=== PATIENT | male | born 1955 | race Two or more races ===

== ENCOUNTER 2017-12-17 13:02 | Inpatient (IN) | payer OTHER ==
[2017-12-17] MEDS ORDERED: guaiFENesin/D-METHORPHAN HB 10 ML UNIT-DOSE CUPS PO PRN (14:36)
[2017-12-17] MEDS ORDERED: MAGNESIUM CITRATE 300 ML BOTTLE PO PRN (14:36)
[2017-12-17] MEDS ORDERED: MAG HYDROX/AL HYDROX/SIMETH 30 ML UNIT-DOSE CUP PO PRN (14:36)
[2017-12-17] MEDS ORDERED: P-EPHED 60MG/TRIPROLIDI 2.5MG TABLET PO PRN (14:36)
[2017-12-17] MEDS ORDERED: LOPERAMIDE HCL 2 MG CAPSULE PO PRN (14:36)
[2017-12-17] MEDS ORDERED: MENTHOL/PHENOL 1 EACH UD MM PRN (14:36)
[2017-12-17] MEDS ORDERED: ACETAMINOPHEN 325 MG TABLET (FP) PO PRN (14:36)
[2017-12-17] MEDS ORDERED: MAGNESIUM HYDROX 2400MG/30ML ORAL SUSPENSION 30 ML CUP PO PRN (14:36)
--- NOTE | 2017-12-17 14:44 | HP ---
JENNIFER BOATENG Rehab Assess/Revision - Admission History Admitted to Rehab from: [facility] Date of Admission to Rehab: 12/17/2017 - Vital signs Vital Signs: NOTED; STABLE. - Findings Detox History & Physical reviewed: Yes Concur with findings: Yes Comments/Additional Findings: PATIENT'S MEDICAL / MEDICATION HISTORY REVIEWED PRIOR TO DISCHARGE FROM DETOX UNIT. PATIENT WAS DISCHARGED FROM DETOX UNIT TO BE TAKEN TO REHAB UNIT IN STABLE MEDICAL CONDITION. Inpatient Rehab Admission - Initial Determination Are CD services needed?: Yes Free of communicable disease: Yes Not in need of hospitalization: Yes - Rehab Admission Criteria Previous failed treatment: Yes Comorbidities: Yes Patient is meeting Inpatient Rehab admission criteria:: Yes
[2017-12-17 14:56] VITALS: BMI 29.2
[2017-12-17] MEDS: THIAMINE HCL 100 MG TABLET (FP) PO SCH (22:04)
[2017-12-17] MEDS: MELATONIN 5 MG TABLETS PO PRN (22:05)
[2017-12-18] MEDS ORDERED: PT OWN MED DRAWER 7, Y5N ONE (09:08)
[2017-12-18] MEDS: PRENATAL VITAMINS W/ FOLIC ACID TABLET (FP) PO SCH (10:17)
[2017-12-18] MEDS: AMMONIUM LACTATE 12% LOTION 225 GM BOTTLE TP SCH (10:17)
[2017-12-18] MEDS: MELATONIN 5 MG TABLETS PO PRN (21:12)
[2017-12-18] MEDS: THIAMINE HCL 100 MG TABLET (FP) PO SCH (21:12)
[2017-12-18] MEDS: IBUPROFEN 400 MG TABLET (FP) PO PRN (21:56)
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
[2017-12-19] MEDS ORDERED: PT OWN MED DRAWER 7, Y5N ONE ×2 (08:49→10:47)
[2017-12-19] MEDS: AMMONIUM LACTATE 12% LOTION 225 GM BOTTLE TP SCH (10:47)
[2017-12-19] MEDS: PRENATAL VITAMINS W/ FOLIC ACID TABLET (FP) PO SCH (10:47)
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
[2017-12-19] MEDS: THIAMINE HCL 100 MG TABLET (FP) PO SCH (21:33)
[2017-12-19] MEDS: IBUPROFEN 400 MG TABLET (FP) PO PRN (21:34)
[2017-12-19] MEDS: SUVOREXANT 10 MG TABLET PO PRN (21:34)
[2017-12-20] MEDS: PRENATAL VITAMINS W/ FOLIC ACID TABLET (FP) PO SCH (10:51)
[2017-12-20] MEDS: AMMONIUM LACTATE 12% LOTION 225 GM BOTTLE TP SCH (10:54)
[2017-12-20] MEDS: THIAMINE HCL 100 MG TABLET (FP) PO SCH (21:10)
[2017-12-20] MEDS: SUVOREXANT 10 MG TABLET PO PRN (21:12)
[2017-12-21] MEDS: PRENATAL VITAMINS W/ FOLIC ACID TABLET (FP) PO SCH (10:36)
[2017-12-21] MEDS: AMMONIUM LACTATE 12% LOTION 225 GM BOTTLE TP SCH (10:36)
[2017-12-21] MEDS: IBUPROFEN 400 MG TABLET (FP) PO PRN (10:38)
[2017-12-21] MEDS: THIAMINE HCL 100 MG TABLET (FP) PO SCH (21:20)
[2017-12-21] MEDS: SUVOREXANT 10 MG TABLET PO PRN (21:21)
[2017-12-22] MEDS: PRENATAL VITAMINS W/ FOLIC ACID TABLET (FP) PO SCH (10:19)
[2017-12-22] MEDS: AMMONIUM LACTATE 12% LOTION 225 GM BOTTLE TP SCH (10:20)
--- NOTE | 2017-12-22 14:21 | PN ---
[facility] Progress Note Note: Psychiatric nurse practitioner note: Belsomra 10mg renewed X3 days.
[2017-12-22] MEDS: THIAMINE HCL 100 MG TABLET (FP) PO SCH (21:37)
[2017-12-22] MEDS: IBUPROFEN 400 MG TABLET (FP) PO PRN (21:37)
[2017-12-22] MEDS: SUVOREXANT 10 MG TABLET PO PRN (22:12)
[2017-12-23] MEDS ORDERED: PT OWN MED DRAWER 7, Y5N ONE (09:17)
[2017-12-23] MEDS: AMMONIUM LACTATE 12% LOTION 225 GM BOTTLE TP SCH (10:52)
[2017-12-23] MEDS: PRENATAL VITAMINS W/ FOLIC ACID TABLET (FP) PO SCH (10:52)
--- NOTE | 2017-12-23 16:08 | PN ---
[facility] Progress Note Note: Patient presents today stating fingers and legs feel stiff while sleeping and it interferes with sleep. Patient denies numbness and tingling extremities, chest pain, dizziness and SOB. Vital Signs Temperature 97.4 F L 12/23/17 07:02 Pulse Rate 90 12/23/17 10:00 Respiratory Rate 18 12/23/17 10:00 Blood Pressure 119/69 12/23/17 10:00 O2 Sat by Pulse Oximetry (%) Obj: general: alert and oriented x 3. Skin: warm and dry ext: no edema, full rom a/p: encourage oral hydration continue current treatment continue to monitor clinically
[2017-12-23] MEDS: IBUPROFEN 400 MG TABLET (FP) PO PRN (21:52)
[2017-12-23] MEDS: SUVOREXANT 10 MG TABLET PO PRN (21:52)
[2017-12-23] MEDS: THIAMINE HCL 100 MG TABLET (FP) PO SCH (21:52)
[2017-12-24] MEDS: PRENATAL VITAMINS W/ FOLIC ACID TABLET (FP) PO SCH (09:39)
[2017-12-24] MEDS: AMMONIUM LACTATE 12% LOTION 225 GM BOTTLE TP SCH (09:39)
[2017-12-24] MEDS: THIAMINE HCL 100 MG TABLET (FP) PO SCH (21:34)
[2017-12-24] MEDS: SUVOREXANT 10 MG TABLET PO PRN (21:35)
[2017-12-24] MEDS: IBUPROFEN 400 MG TABLET (FP) PO PRN (21:35)
[2017-12-25] MEDS: AMMONIUM LACTATE 12% LOTION 225 GM BOTTLE TP SCH (09:38)
[2017-12-25] MEDS: PRENATAL VITAMINS W/ FOLIC ACID TABLET (FP) PO SCH (09:38)
[2017-12-25] MEDS: SUVOREXANT 10 MG TABLET PO PRN (21:34)
[2017-12-25] MEDS: THIAMINE HCL 100 MG TABLET (FP) PO SCH (21:34)
[2017-12-25] MEDS: IBUPROFEN 400 MG TABLET (FP) PO PRN (21:34)
[2017-12-26] MEDS: PRENATAL VITAMINS W/ FOLIC ACID TABLET (FP) PO SCH (09:50)
[2017-12-26] MEDS: AMMONIUM LACTATE 12% LOTION 225 GM BOTTLE TP SCH (09:50)
[2017-12-26] MEDS ORDERED: TRIMETHOBENZAMIDE HCL 200MG/2ML INJ IM PRN (20:17)
[2017-12-26] MEDS: THIAMINE HCL 100 MG TABLET (FP) PO SCH (21:31)
[2017-12-26] MEDS: IBUPROFEN 400 MG TABLET (FP) PO PRN (21:31)
[2017-12-27] MEDS: AMMONIUM LACTATE 12% LOTION 225 GM BOTTLE TP SCH (09:49)
[2017-12-27] MEDS: PRENATAL VITAMINS W/ FOLIC ACID TABLET (FP) PO SCH (09:49)
[2017-12-27] MEDS ORDERED: PT OWN MED DRAWER 7, Y5N ONE (10:31)
--- NOTE | 2017-12-27 15:20 | PN ---
[facility] Progress Note Note: Vital Signs Temperature 97.6 F 12/27/17 06:26 Pulse Rate 67 12/27/17 06:26 Respiratory Rate 16 12/27/17 06:26 Blood Pressure 127/75 12/27/17 06:26 O2 Sat by Pulse Oximetry (%) Patient presents today reporting urinary frequency and difficulty holding his urine. Denies hematuria or dysuria. Obj: general: alert and oriented x 3. Skin: warm and dry ext: no edema, full rom - urinary frequency a/p: u/a and urine culture ordered encourage oral hydration continue current treatment continue to monitor clinically
[2017-12-27] MEDS: THIAMINE HCL 100 MG TABLET (FP) PO SCH (21:12)
[2017-12-27] MEDS: hydrOXYzine PAMOATE 25 MG CAPSULE (FP) PO PRN (21:14)
[2017-12-27] MEDS: IBUPROFEN 400 MG TABLET (FP) PO PRN (21:16)
[2017-12-28] MEDS: PRENATAL VITAMINS W/ FOLIC ACID TABLET (FP) PO SCH (09:59)
[2017-12-28] MEDS: hydrOXYzine PAMOATE 25 MG CAPSULE (FP) PO PRN ×2 (10:00→21:24)
[2017-12-28] MEDS: AMMONIUM LACTATE 12% LOTION 225 GM BOTTLE TP SCH (10:01)
[2017-12-28 14:29] LABS: URINE APPEARANCE CLEAR; URINE BILIRUBIN NEGATIVE (<2.0 mg/dL); URINE COLOR STRAW; URINE GLUCOSE (UA) NEGATIVE (NEGATIVE); URINE KETONE NEGATIVE (NEGATIVE); URINE LEUK ESTERASE NEGATIVE (NEGATIVE); URINE NITRITE NEGATIVE (NEGATIVE); URINE PROTEIN NEGATIVE (NEGATIVE); URINE UROBILINOGEN NEGATIVE mg/dL (0.2-1.0)
[2017-12-28] MEDS: THIAMINE HCL 100 MG TABLET (FP) PO SCH (21:23)
[2017-12-28] MEDS: IBUPROFEN 400 MG TABLET (FP) PO PRN (21:25)
[2017-12-29] MEDS: PRENATAL VITAMINS W/ FOLIC ACID TABLET (FP) PO SCH (09:34)
[2017-12-29] MEDS: AMMONIUM LACTATE 12% LOTION 225 GM BOTTLE TP SCH (09:35)
[2017-12-29] MEDS: hydrOXYzine PAMOATE 25 MG CAPSULE (FP) PO PRN ×2 (09:36→21:09)
[2017-12-29] MEDS: THIAMINE HCL 100 MG TABLET (FP) PO SCH (21:08)
[2017-12-29] MEDS: IBUPROFEN 400 MG TABLET (FP) PO PRN (21:30)
[2017-12-30] MEDS: AMMONIUM LACTATE 12% LOTION 225 GM BOTTLE TP SCH (09:29)
[2017-12-30] MEDS: PRENATAL VITAMINS W/ FOLIC ACID TABLET (FP) PO SCH (09:29)
[2017-12-30] MEDS: hydrOXYzine PAMOATE 25 MG CAPSULE (FP) PO PRN ×2 (09:30→21:12)
--- NOTE | 2017-12-30 13:49 | PN ---
S Progress Note Note: UA AND CULTURE RESULTS NEGATIVE. PATIENT INFORMED OF RESULTS. CONTINUE TO MONITOR CLINICALLY.
[2017-12-30] MEDS: THIAMINE HCL 100 MG TABLET (FP) PO SCH (21:10)
[2017-12-30] MEDS: IBUPROFEN 400 MG TABLET (FP) PO PRN (21:12)
[2017-12-31] MEDS ORDERED: PT OWN MED DRAWER 7, Y5N ONE (08:29)
[2017-12-31] MEDS: PRENATAL VITAMINS W/ FOLIC ACID TABLET (FP) PO SCH (09:20)
[2017-12-31] MEDS: AMMONIUM LACTATE 12% LOTION 225 GM BOTTLE TP SCH (09:21)
[2017-12-31] MEDS: hydrOXYzine PAMOATE 25 MG CAPSULE (FP) PO PRN (09:22)
[2017-12-31] MEDS: THIAMINE HCL 100 MG TABLET (FP) PO SCH (21:07)
[2017-12-31] MEDS: IBUPROFEN 400 MG TABLET (FP) PO PRN (21:08)
[2018-01-01] MEDS ORDERED: PT OWN MED DRAWER 7, Y5N ONE (08:21)
[2018-01-01] MEDS: AMMONIUM LACTATE 12% LOTION 225 GM BOTTLE TP SCH (09:26)
[2018-01-01] MEDS: PRENATAL VITAMINS W/ FOLIC ACID TABLET (FP) PO SCH (09:26)
[2018-01-01] MEDS: hydrOXYzine PAMOATE 25 MG CAPSULE (FP) PO PRN ×2 (09:27→21:14)
[2018-01-01] MEDS: THIAMINE HCL 100 MG TABLET (FP) PO SCH (21:11)
[2018-01-01] MEDS: IBUPROFEN 400 MG TABLET (FP) PO PRN (21:13)
[2018-01-02] MEDS: AMMONIUM LACTATE 12% LOTION 225 GM BOTTLE TP SCH (09:39)
[2018-01-02] MEDS: PRENATAL VITAMINS W/ FOLIC ACID TABLET (FP) PO SCH (09:39)
[2018-01-02] MEDS: THIAMINE HCL 100 MG TABLET (FP) PO SCH (21:10)
[2018-01-02] MEDS: hydrOXYzine PAMOATE 25 MG CAPSULE (FP) PO PRN (21:10)
[2018-01-02] MEDS: IBUPROFEN 400 MG TABLET (FP) PO PRN (21:10)
[2018-01-03] MEDS: hydrOXYzine PAMOATE 25 MG CAPSULE (FP) PO PRN ×2 (03:30→21:05)
[2018-01-03] MEDS: IBUPROFEN 400 MG TABLET (FP) PO PRN ×2 (09:21→21:05)
[2018-01-03] MEDS: PRENATAL VITAMINS W/ FOLIC ACID TABLET (FP) PO SCH (09:21)
[2018-01-03] MEDS: AMMONIUM LACTATE 12% LOTION 225 GM BOTTLE TP SCH (09:22)
--- NOTE | 2018-01-03 09:37 | PN ---
[facility] Progress Note Note: Psychiatric nurse practitioner note: Belsomra 10mg qhs prn renewed for insomnia.
[2018-01-03] MEDS: THIAMINE HCL 100 MG TABLET (FP) PO SCH (21:05)
[2018-01-03] MEDS ORDERED: SUVOREXANT 10 MG TABLET PO PRN (22:00)
[2018-01-04 06:46] VITALS: BP 128/78; PULSE 64; TEMP 98.6
--- NOTE | 2018-01-04 06:56 | PN ---
Psychiatric Progress Note Vital Signs: Vital Signs Period Temp Pulse Resp BP Sys/Andrews Pulse Ox Last 24 Hr 96.6 F-98.6 F 64-66 18-18 128-149/76-78 Date of Session: 01/04/18 Chief Complaint:: Discharge Note HPI: Patient addressing Alcohol Dependence comorbid with Alcohol-Induce Mood Disorder and Alcohol-Induced Sleep Disorder ROS: HTN, HIV Current Medications: Active Medications Generic Name Dose Route Start Last Admin Trade Name Freq PRN Reason Stop Dose Admin Acetaminophen 650 mg 12/17/17 14:36 12/21/17 21:21 Tylenol - PO 650 mg Q4H PRN Administration FEVER Al Hydroxide/Mg Hydroxide 30 ml 12/17/17 14:36 Mylanta Oral Suspension - PO Q6H PRN DYSPEPSIA Eucalyptus/Menthol/Phenol/Sorbitol 1 each 12/17/17 14:36 Cepastat Lozenge - MM Q4H PRN SORE THROAT Guaifenesin 10 ml 12/17/17 14:36 Robitussin Dm - PO Q6H PRN COUGH Hydroxyzine Pamoate 25 mg 12/27/17 14:43 01/03/18 21:05 Vistaril - PO 25 mg Q6H PRN Administration FOR ITCHING Ibuprofen 400 mg 12/17/17 14:36 01/03/18 21:05 Motrin - PO 400 mg Q6H PRN Administration Pain Level 4-6 Lactic Acid 1 applic 12/18/17 10:00 01/03/18 09:22 Lac-Hydrin 12 TP 1 applic DAILY ALTHEA Administration Loperamide HCl 4 mg 12/17/17 14:36 Imodium - PO Q6H PRN DIARRHEA Magnesium Citrate 300 ml 12/17/17 14:36 Citroma - PO Q48H PRN CONSTIPATION Magnesium Hydroxide 30 ml 12/17/17 14:36 Milk Of Magnesia - PO DAILY PRN CONSTIPATION Multivit/Folic Acid/Iron 1 tab 12/18/17 10:00 01/03/18 09:21 Vitamins (Sjr) - PO 1 tab DAILY ALTHEA Administration Pseudoephedrine/Triprolidine 1 combo 12/17/17 14:36 Actifed - PO TID PRN NASAL CONGESTION Suvorexant 10 mg 01/03/18 22:00 01/03/18 21:05 Belsomra PO 01/10/18 21:59 10 mg HS PRN Administration INSOMNIA Thiamine HCl 100 mg 12/17/17 22:00 01/03/18 21:05 Vitamin B1 - PO 100 mg HS ALTHEA Administration Trimethobenzamide HCl 200 mg 12/26/17 20:17 12/26/17 20:30 Tigan Injection - IM 200 mg Q8H PRN Administration NAUSEA Current Side Effect: No Lab tests ordered: Yes Lab tests reviewed: Yes Provider note:: Patient has completed this program today. He has met his treatment goals and will continue to address his issues in outpatient treatment at [facility]. Told loan underwriter that from his participation in this program, he has learned the importance of making meetings and have a sponsor. He is stable for discharge today Total face to face time:: 35 Mental Status Exam - Mental Status Exam Alert and Oriented to: Time, Place, Person Cognitive Function: Fair Patient Appearance: Well Groomed Mood: Hopeful, Euthymic Affect: Appropriate Patient Behavior: Cooperative Speech Pattern: Clear Voice Loudness: Normal Thought Process: Intact, Goal Oriented Thought Disorder: Not Present Hallucinations: Denies Suicidal Ideation: Denies Homicidal Ideation: Denies Insight/Judgement: Fair Sleep: Fair Appetite: Good Muscle strength/Tone: Normal Gait/Station: Normal Psychiatric Treatment Plan - Problem List (1) Alcohol dependence Current Visit: No Comment: . (2) Alcohol-induced mood disorder Current Visit: Yes (3) Alcohol-induced sleep disorder Current Visit: Yes (4) HIV (human immunodeficiency virus infection) Current Visit: No Comment: ENCOURAGE THE PATIENT TO CONTACT HIS PHARMACIST OR INFECTIOUS DISEASE PROVIDER FOR MEDICATIONS. (5) Hypertension Current Visit: No Qualifiers: Hypertension type: essential hypertension Qualified Code(s): I10 - Essential (primary) hypertension (6) Pacemaker Current Visit: No (7) Use of cane as ambulatory aid Current Visit: No Initial treatment plan: Patient is discharged today and referred to [facility] for outpatient treatment
[2018-01-04] MEDS: IBUPROFEN 400 MG TABLET (FP) PO PRN (08:37)
== END 2018-01-04 09:07 | disposition home or self-care (01) | DRG 772 ==
LOC: YASAS 13:02 → Y5N 13:03 → Y3N 14:37 → Y3W 14:39
PROVIDERS: ADMIT Psychiatry & Neurology Psychiatry; ATTEND Psychiatry & Neurology Psychiatry
PROC: HZ42ZZZ Group Counseling for Substance Abuse Treatment, Cognitive-Behavioral (ICD-10-PCS; principal; 2017-12-17)
DX: F10.20 Alcohol dependence, uncomplicated (principal); F19.24 Other psychoactive substance dependence with psychoactive substance-induced mood disorder; F19.282 Other psychoactive substance dependence with psychoactive substance-induced sleep disorder; I10 Essential (primary) hypertension; Z21 Asymptomatic human immunodeficiency virus [HIV] infection status; M25.60 Stiffness of unspecified joint, not elsewhere classified; R35.0 Frequency of micturition; R26.2 Difficulty in walking, not elsewhere classified; Z99.89 Dependence on other enabling machines and devices; Z87.828 Personal history of other (healed) physical injury and trauma; Z95.0 Presence of cardiac pacemaker; Z59.0 Homelessness
CPT/HCPCS: 81003; 87086